=== PATIENT | male | born 1955 | race Two or more races ===

== ENCOUNTER 2016-07-16 20:46 | Emergency (ER) | payer BC ==
[2016-07-16 21:26] VITALS: BP 157/81
--- OUTSIDE RECORDS SUMMARY | 2016-07-16 21:53 | XMS REPORT | Continuity of Care Document ---
:1955 Author Organization [facility] ([facility]) Address [address] [place] [address] Phone [phone] Care Team Providers Name Role Phone Unavailable Primary Care Provider Unavailable Source Comments This disclosure is being made pursuant to the Care Everywhere program, applicable federal and state laws, and may not contain all informaitonavailable regarding this patient.[facility] ([facility]) Active Allergies and Adverse Reactions Not on File Current Medications Not on file Active Problems Not on file Social History Tobacco Use Types Packs/Day Years Used Date Never Assessed Plan of Care Health Maintenance Due Date Last Done Comments HCV Screening 1955 Hepatitis B Vaccine (1 of 3 - Primary Series) 1955 Tdap Vaccine 1964 Lipid Disorder Screening 10/30/1971 Td Vaccine 10/30/1971 Colonoscopy 2003 Prostate Cancer Screening 10/30/2003 Zoster Vaccine 2013 Influenza Vaccine: Seasonal (#1) 10/30/2015 Results from Last 3 Months Not on file
--- OUTSIDE RECORDS SUMMARY | 2016-07-16 21:53 | XMS REPORT | Continuity of Care Document ---
:1955 Author Organization [facility] [place] [address] Care Team Providers Name Role Phone Maynor Freedman Primary Care Provider [phone] Source Comments This disclosure is being made pursuant to the Siftit program and maynot contain all information available regarding this patient.[facility] Active Allergies and Adverse Reactions No Known Allergies Current Medications Be aware that medications may not be up to date as of this document. Alwaysverify current medications with the patient. Prescription Sig. Disp. Refills Start Date End Date Status amLODIPine (NORVASC) 5 MG Take 1 tablet by Active tablet mouth daily. gemfibrozil (LOPID) 600 Take 1 tablet by Active MG tablet mouth 2 (two) times daily. lisinopril-hydrochlorothi Take 1 tablet by Active azide mouth 2 (two) times (PRINZIDE,ZESTORETIC) daily. 20-25 MG per tablet metoprolol succinate Take by mouth. Active (TOPROL XL) 100 MG 24 hr tablet Multiple Take 1 tablet by Active Vitamins-Minerals mouth daily. (MULTIVITAMIN PO) Active Problems Problem Noted Date History of malignant neoplasm of prostate 12/19/2015 Malignant neoplasm of prostate (HCC) 10/02/2010 Overview: Overview: BRENDAN ALDRIDGE MD Overview: [place] 7, T1c BRENDAN ALDRIDGE MD Essential hypertension 10/02/2010 Overview: Overview: BRENDAN ALDRIDGE MD Overview: BRENDAN ALDRIDGE MD Most Recent Encounters Date Type Specialty Providers Description 06/27/2016 Data Import Social History Tobacco Use Types Packs/Day Years Used Date Never Smoker Smokeless Tobacco: Never Used Alcohol Use Drinks/Week oz/Week Comments No Last Filed Vital Signs Vital Sign Reading Time Taken Blood Pressure 152/92 12/19/2015 9:05 AM CDT Pulse 64 04/28/2013 9:38 AM [employer] Temperature 36.3 C (97.4 F) 04/07/2012 8:15 AM [employer] Respiratory Rate 18 04/07/2012 8:15 AM [employer] Height 1.88 m (6' 2") 05/18/2014 9:11 AM [employer] Weight 106.595 kg (235 lb) 12/19/2015 9:05 AM CDT Body Mass Index 30.16 12/19/2015 9:05 AM CDT Oxygen Saturation - - Plan of Care Date Type Specialty Providers Description 12/24/2016 Appointment Urology Kaela, Brendan Sanchez MD [address] [place] [address] [phone] (Fax) Health Maintenance Due Date Last Done Comments Hepatitis C Screening 10/30/1971 Tetanus/Pertussis (1 - Tdap) 1972 Colonoscopy 10/30/2003 Well Adult Visit 10/30/2003 Zoster Vaccine 60+ 2013 Influenza Immunization (#1) 2015 Results from Last 3 Months PSA (06/18/2016 4:29 PM) Component Value Range PSA 0.14 0.00-4.00 ng/mL Narrative Testing performed at [facility], [address] [place] [address].District Captain Osmin Tyson MD
--- NOTE | 2016-07-16 22:25 | ERNOTE ---
ENT HPI Date of Service: 07/16/16 Presenting Symptoms: other - one half of vision in the left eye is blurred Time Seen by Provider: 07/16/16 21:40 Source: patient - Immun/Allergies/Home Medications Immunizations: IMMUNIZATION HX Immunizations Up to Date Yes History of Influenza Vaccine Yes Allergies/Adverse Reactions: Allergies Allergy/AdvReac Type Severity Reaction Status Date / Time No Known Allergies Allergy Unverified 07/16/16 21:26 - History of Present Illness Narrative: 60 year old that noticed while he was driving that the medial part of his visual field was blurred in the left eye. The vision in the right eye was normal. The symptoms started 2-3 hours ago. No complaints of trauma or headache. The blurred part of the visual field moves with eye movement. The blurring is minimized when he puts his glasses on, or when he is looking at close objects. Severity: Present: mild ENT Location: Present: ear (L) Prearrival Treatment: Present: no prearrival treatment Modifying Factors - Improves: Reports: nothing Modifying Factors - Worsens: Reports: nothing Associated Symptoms - ENT: Reports: denies symptoms Review of Systems - Review of Systems Constitutional: Present: no symptoms reported EYE: Present: see HPI ENT: Present: no symptoms reported Respiratory: Present: no symptoms reported Cardiology: Present: no symptoms reported Gastrointestinal/Abdominal: Present: no symptoms reported Genitourinary: Present: no symptoms reported Musculoskeletal: Present: no symptoms reported Skin: Present: no symptoms reported Neurological: Present: no symptoms reported Endocrine: Present: no symptoms reported Hematologic/Lymphatic: Present: no symptoms reported Psych: Present: no symptoms reported - Patient's Past Medical History Patient History - Medical: Kidney stone, Other Patient History - Cardiac/Respiratory: Hypertension, Hyperlipidemia Patient History - Cancer: Prostate Patient History - Surgical Procedures: Colonoscopy Patient History - Other: None - Social History Living Situations: alone Abuse History: No History of abuse Psych History: No pertinent hx Smoking Status: Never smoker Alcohol Use: none Drug Use: none - Immunizations Immunizations Up to Date: Yes History of Influenza Vaccine: Yes Physical Exam - Physical Exam Narrative: Pleasant and cooperative. General Appearance: Present: alert, no apparent distress Eye Exam: Normal inspection: bilateral, PERRL: bilateral, EOMI: bilateral Ears, Nose, Throat: Present: normal ENT inspection Neck: Present: normal inspection Respiratory: Present: no respiratory distress Cardiovascular/Chest: Present: regular rate, rhythm Gastrointestinal/Abdominal: Present: nondistended Back Exam: Present: normal range of motion Extremity Exam: Present: normal inspection Neurological Exam: Present: alert, oriented, normal mood/affect Skin Exam: Present: normal color ED Progress - Vital Signs Patient's Vital Signs:: I have reviewed the patient's vital signs. Vital Signs: Vital Signs 07/16/16 21:19 Temperature 37.1 C Pulse Rate 72 Respiratory 16 Rate Blood Pressure 157/81 O2 Sat by Pulse 97 Oximetry - Progress/Reassessment Chief Complaint: Eye Injury/Trauma Progress:: Unchanged Departure Clinical Impression: Detached retina, left - Departure Disposition: Home self-care Condition: Fair Instructions: Retinal Detachment Print Language: Nauruan Additional Instructions: Follow up with ophthalmology as soon as possible. Referrals: Misbah De La Fuente DO [Primary Care Provider] -
== END 2016-07-16 22:30 | disposition home or self-care (01) ==
LOC: ER 20:46
DX: H33.22 Serous retinal detachment, left eye (principal); Z87.442 Personal history of urinary calculi; Z85.46 Personal history of malignant neoplasm of prostate

== ENCOUNTER 2018-11-27 14:14 | Inpatient (IN) ==
--- NOTE | 2018-11-27 14:41 | ERNOTE ---
Abdominal HPI - General Chief Complaint: Abdominal Pain Time Seen by Provider: 11/27/18 14:16 Source: patient Exam Limitations: no limitations - Immun/Allergies/Home Medications Immunizatons: IMMUNIZATION HX Immunizations Up to Date Yes History of Influenza Vaccine Yes Hx Pneumococcal Vaccination Yes Allergies/Adverse Reactions: Allergies No Known Allergies Allergy (Verified 11/27/18 14:19) Home Medications: HOME MEDICATIONS NK 11/28/18 [Last Taken Unknown] - History of Present Illness Narrative: Patient states that he started to have right flank pain last night while w atching TV. He denies any recent injury, states that the pain is constant, no associated symptoms, no radiation, pain at times is worse with deep breath, no other aggravating symptoms, had three doses of tylenol earlier. 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 Early August of this year he was flown to the [facility] after falling for a brain bleed and spleenic rupture, had splenectomy and davon holes and was at [facility] for rehab for a while. Is now back to living by himself Date (Duration): 11/26/18 Time (Timing): 20:00 Timing: constant Quality: moderate, aching Activities at Onset: rest Modifying Factors - (Improves): Present: rest Modifying Factors - (Worsens): Present: breathing. Absent: coughing, lying down, movement Associated Symptoms: Absent: diarrhea-gross blood, fever/chills, nausea, vomiting, shortness of breath Prior Abdominal Problems: Absent: recent trauma, similar symptoms Prior Treatment: Absent: recently seen, currently on antibiotics Review of Systems - Review of Systems Constitutional: Absent: recent illness, fever ENT: Absent: nose congestion, sore throat Respiratory: Absent: shortness of breath Cardiology: Absent: chest pain Gastrointestinal/Abdominal: Absent: nausea, vomiting, abdominal pain Genitourinary: Present: no symptoms reported. Absent: frequency, dysuria Musculoskeletal: Present: See HPI. 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 History of CT scan of abdomen Onset Date: 09/05/18 Per documentation from [facility]. Massive splenomegaly, and possible small splenic laceration versus splenic lesion. History of CT scan of brain Onset Date: 09/05/[address] scan of chest Onset Date: 09/05/18 History of blood transfusion Onset Date: 09/05/18 3 units pRBCs and 1 unit platelets intraoperatively during splenectomy. Horseshoe tear of retina without detachment, right eye Onset Date: 07/17/16 Hospital admission Onset Date: 09/05/18 Admitted to [facility] on 09/05/2018; trauma after fall. Discharged home on 09/16/2018. Principal diagnosis: laceration of spleen. Ileus, postoperative Onset Date: 09/05/18 Splenic laceration Onset Date: 09/05/18 Grade 2 splenic laceration with fluid in the abdomen. Subdural hematoma Onset Date: 09/05/18 Parafalcine subdural hematoma and left convexity subdural hematoma. Malignant neoplasm prostate Onset Date: 08/24/10 radiation Surgical History: Surgical History (Updated 10/15/18 @ 10:35 by Isabel Garcia RN) History of brain surgery Onset Date: 09/05/18 Dr. Suleiman Dumont, [facility]. Intracranial pressure monitor. History of colonoscopy Onset Date: 06/14/11 Normal. History of gastric surgery Onset Date: ~1992 History of lithotripsy Onset Date: 01/2008 History of nephrolithotomy with removal of calculi Onset Date: ~1987 History of prostate surgery Onset Date: 09/2010 Gold coiled implants to prostate. 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 Highest education level completed: high school graduate Service: No Tobacco: Smoking Status: Never smoker Alcohol: alcohol intake: former Alcohol type: beer Substance Use: substance use type: does not use Dietary Habits: caffeine: Yes Type: carbonated beverages Exercise: Physical activity type: none frequency: does not exercise Edelmira/Adventist: edelmira/moravian: Voodoo Edelmira Physical Exam - Physical Exam General Appearance: Present: wd/wn, alert, no apparent distress Head Exam: Present: normal inspection Eye Exam: Normal inspection: bilateral Respiratory: Present: no respiratory distress, normal breath sounds, no accessory muscle use, chest nontender, lungs clear Cardiovascular/Chest: Present: regular rate, rhythm, no murmur Gastrointestinal/Abdominal: Present: normal bowel sounds, nondistended, soft, tenderness - mild in RUQ with deep palpation Back Exam: Present: normal inspection, normal range of motion, no CVA tenderness, no vertebral tenderness Neurological Exam: Present: alert, oriented, normal mood/affect, no motor/sensory deficits Skin Exam: Present: normal color, warm/dry Progress - Results and Orders Patient's Lab Results:: I have reviewed the patient's lab results. - Vital Signs Patient's Vital Signs:: I have reviewed the patient's vital signs. Vital Signs: Vital Signs 11/27/18 14:15 Temperature 37.3 C Pulse Rate 79 Respiratory Rate 17 Blood Pressure 188/92 H O2 Sat by Pulse Oximetry 96 - EKG EKG #1 EKG: NSR, other - no acute changes EKG read: Interp. by nh - X-Ray X-Ray #1 X-Ray: chest - right pleural effusion with possible infiltrate Interpretation: Reviewed by me - CT/Ultrasound CT/Ultrasound Narrative: venous doppler left leg: Extensive left lower extremity deep venous thrombosis as discussed above. CTA: RLL pneumonia, no PE - Progress/Reassessment Chief Complaint: Abdominal Pain Progress Note-Subjective: 11/27/18 15:31 discussed CXR findings with patient WBC chronically elevated with h/o leukemia patient has no fever, no SOB, normal O2sats, no cough, but pleuritic chest pain PSI 95 points, class IV, CURB 1 point for age discussed possible admission with patient, would prefer to go home, will be started on zithromax and augmentin as class IV PSI, first dose given here 11/27/18 16:00 son is available now, discussed diagnosis and plan with him as well son is concerned about left leg swelling which patient has had for a while, patient states that he mentioned it to his PCP but was told it is nothing to worry about, no testing done so far 11/27/18 16:48 discussed venous doppler with radiologist, extensive DVT right leg 11/27/18 16:53 discussed ultrasound findings with patient, will get CTA to make sure that he doesn't have a PE 11/27/18 17:52 call to [facility] 11/27/18 18:40 call back to [facility], still waiting to hear back from hem/onc 11/27/18 18:[address] Jones (hem/onc) okay to start on eliquis, from her records hematoma has resolved, leukemia is just being monitored at this time 11/27/18 19:04 discussed with plan with patient, he now wants stay mainly due to the pleuritic pain 11/27/18 19:[address] Beebe, okay to admit for pneumonia with pleuritic pain and DVT continue po antibiotics, will stick with tylenol for pain for now as NSAIDs are contraindicated with eliquis and concerns with fall risk and confusion with TBI 11/27/18 20:33 discussed with radiology, over read of CT shows small PEs, discussed with Dr Beebe Departure Clinical Impression: Pleuritic chest pain, H/O traumatic brain injury Pneumonia Qualifiers: Pneumonia type: due to unspecified organism Laterality: right Lung location: lower lobe of lung Qualified Code(s): J18.1 - Lobar pneumonia, unspecified organism DVT (deep venous thrombosis) Qualifiers: DVT location: lower extremity Affected thrombotic vein of extremity: unspecified vein of extremity Chronicity: acute Laterality: left Qualified Code(s): I82.402 - Acute embolism and thrombosis of unspecified deep veins of left lower extremity Pulmonary emboli Qualifiers: Pulmonary embolism type: unspecified Chronicity: unspecified Acute cor pulmonale presence: without acute cor pulmonale Qualified Code(s): I26.99 - Other pulmonary embolism without acute cor pulmonale - Departure Disposition: Still a patient Condition: Stable
[2018-11-27 14:44] LABS: Hemoglobin 11.6 gm/dL (13.5-18.0); Mean Cell Volume 90.5 fl (78-100); Mean Corpuscular Hemoglobin 29.1 pg (27-31); Mean Corpuscular Hgb Conc 32.2 g/dl (32-36); Mean Platelet Volume 9.2 fl (8-11.3); Platelet Count 337 K/mm3 (150-450); Red Blood Count 3.98 M/mm3 (4.7-6.0); Red Cell Distribution Width 19.7 % (11.5-14.0); White Blood Count 33.7 K/mm3 (4.0-10.5)
[2018-11-27 14:47] LABS: Total Cells Counted 100
[2018-11-27 14:50] LABS: Urine Bilirubin Negative (NEGATIVE); Urine Ketone Negative (NEGATIVE); Urine Nitrite Negative (NEGATIVE); Urine Protein Negative (NEGATIVE); Urine Urobilinogen Normal (NORMAL); Urine pH 6.5 pH (5.0-7.0)
[2018-11-27 14:59] LABS: Urine Appearance Clear (CLEAR); Urine Bacteria None Seen; Urine Blood 5 /ul (NEGATIVE); Urine Color Yellow; Urine RBC None Seen /hpf (0-5); Urine WBC None Seen /hpf (0-5)
[2018-11-27 15:00] LABS: BUN/Creatinine Ratio 14.2 (9.0-21.6); Carbon Dioxide 29.5 mmol/L (24-32.6); Potassium 3.8 mmol/L (3.4-4.6)
[2018-11-27 15:01] LABS: Albumin * 3.7 gm/dl (3.4-5.0); Anion Gap 12.3 mmol/L (6.8-13.8); Bilirubin, Total 0.6 mg/dL (0.0-1.1); Ca. Corrected For Albumin 9.5 mg/dL (8.4-10.2); Calcium * 9.6 mg/dL (7.9-10.9); Total Protein 7.5 gm/dL (6.2-8.2); Troponin I 0.017 ng/mL (0.00-0.10)
[2018-11-27 15:05] LABS: Atypical (Reactive) Lymph 81 % (0-2); Eosinophil 1 % (0-3); Lymphocyte 3 % (20-51); Monocyte 2 % (0-9); Neutrophil 13 % (42-75); Neutrophil # 4.4 K/mm3 (1.3-6.0)
[2018-11-27 15:06] LABS: Platelet Estimate Normal (NORMAL); RBC Morphology Normal (NORMAL)
[2018-11-27] MEDS ORDERED: AZITHROMYCIN 250 MG TABLET PO ONE (15:37)
[2018-11-27] MEDS ORDERED: AMOX TR/POTASSIUM CLAVULANATE 875 MG TABLET PO ONE (15:37)
[2018-11-27 17:01] LABS: INR 1.01 INR (0.92-1.08); Partial Thrombolplastin Time 25.5 Seconds (24-32)
[2018-11-27] MEDS ORDERED: ACETAMINOPHEN 325 MG TABLET PO ONE (18:08)
[2018-11-27] MEDS ORDERED: ACETAMINOPHEN 325 MG TABLET PO PRN (19:30)
[2018-11-27] MEDS ORDERED: APIXABAN 5 MG TABLET PO ONE (20:00)
[2018-11-27] MEDS ORDERED: AMOX TR/POTASSIUM CLAVULANATE 875 MG TABLET PO SCH (21:00)
[2018-11-27] MEDS ORDERED: LISINOPRIL 10 MG TABLET PO ONE (21:30)
[2018-11-27] MEDS: HYDROcodone/ACETAMINOPHEN 1 EACH TABLET PO PRN (21:32)
[2018-11-28] MEDS: HYDROcodone/ACETAMINOPHEN 1 EACH TABLET PO PRN (03:48)
--- NOTE | 2018-11-28 07:55 | HP ---
Chief Complaint - Chief Complaint Date of Service: 11/28/18 Time of Service: 07:53 Chief Complaint: flank pain History of Present Illness: Patient with PMHx of Hairy Cell leukemia, TBI and splenic laceration in August 2018 presented to the ED after two days of RUQ pain. He was not sure what made it worse, or what made it better. He denied chest pain, shortness of breath, cough, or fever. Denied bowel changes, dysuria, or skin changes. He'd been having some left lower extremity swelling, and US showed a DVT. CT was done, which showed PE on the right. A call was made to his oncologist, who recommended Eliquis. There was some suggestion of pneumonia on imaging studies, but with negative chest complaints and low procalcitonin, it is felt he does not have pneumonia. He seemed a bit confused during the H&P. Nursing reports an episode this morning when he became very upset, getting his sons confused with eachother. Further history was obtained from his son (in person) and daughter (via phone). He had spent some time at the [facility] for a brain bleed and splenectomy, but was back at home, seeming like he'd returned to baseline. He had fallen about a week ago, and his right lower ribs hit the arm of a chair, but he hadn't been complaining of pain for a couple of days. Family is very concerned about the source of his pain, and his current encephalopathy. He was started on norco, which wasn't helpful, and oxycodone, which also wasn't helpful. Medical History (Updated 11/28/18 @ 08:31 by Anita Mathew MD) Irradiated blood products needed (Chronic) Onset Date: 09/05/18 Detached retina, left (Resolved) Onset Date: 07/17/16 Hairy cell leukemia Onset Date: 09/05/18 Hyperlipidemia Onset Date: 01/2008 Hypertension Onset Date: 12/12/[address] scan Onset Date: 09/05/18 CT cervical spine. History of CT scan of abdomen Onset Date: 09/05/18 Per documentation from [facility]. Massive splenomegaly, and possible small splenic laceration versus splenic lesion. History of CT scan of brain Onset Date: 09/05/[address] scan of chest Onset Date: 09/05/18 History of blood transfusion Onset Date: 09/05/18 3 units pRBCs and 1 unit platelets intraoperatively during splenectomy. Horseshoe tear of retina without detachment, right eye Onset Date: 07/17/16 Hospital admission Onset Date: 09/05/18 Admitted to [facility] on 09/05/2018; trauma after fall. Discharged home on 09/16/2018. Principal diagnosis: laceration of spleen. Ileus, postoperative Onset Date: 09/05/18 Splenic laceration Onset Date: 09/05/18 Grade 2 splenic laceration with fluid in the abdomen. Subdural hematoma Onset Date: 09/05/18 Parafalcine subdural hematoma and left convexity subdural hematoma. Malignant neoplasm prostate Onset Date: 08/24/10 radiation Surgical History: Surgical History (Updated 11/28/18 @ 07:55 by Yajaira Beebe DO) History of brain surgery Onset Date: 09/05/18 Dr. Suleiman Dumont, [facility]. Intracranial pressure monitor. History of colonoscopy Onset Date: 06/14/11 Normal. History of gastric surgery Onset Date: ~1992 History of lithotripsy Onset Date: 01/2008 History of nephrolithotomy with removal of calculi Onset Date: ~1987 History of prostate surgery Onset Date: 09/2010 Gold coiled implants to prostate. 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 Highest education level completed: high school graduate Service: No Tobacco: Smoking Status: Never smoker Alcohol: alcohol intake: former Alcohol type: beer Substance Use: substance use type: does not use Dietary Habits: caffeine: Yes Type: carbonated beverages Exercise: Physical activity type: none frequency: does not exercise [place]/Jew: edelmira/temple: Sikhism [place] Review Of Systems (GEN) - Review of Systems Generalized/Overall Review: Absent: Fever Respiratory: Absent: Cough, Shortness of Breath Cardiac: Absent: Chest Pain, Edema Abdominal: Present: Abdominal Pain - RUQ Genitourinary: Absent: Dysuria Skin: Absent: Rash Immunizations: IMMUNIZATION HX Immunizations Up to Date Yes History of Influenza Vaccine Yes Hx Pneumococcal Vaccination Yes Allergies/Adverse Reactions: Allergies Allergy/AdvReac Type Severity Reaction Status Date / Time No Known Allergies Allergy Verified 11/27/18 14:19 Home Medications: HOME MEDICATIONS NK 11/28/18 [Last Taken Unknown] Exam - Exam Vital Signs: Vital Signs - Last Taken Temp 36.6 C 11/28/18 06:00 Pulse 81 11/28/18 06:00 Resp 18 11/28/18 06:00 BP 169/86 H 11/28/18 06:00 Pulse Ox 93 11/28/18 06:00 Constitutional: Present: Alert, Oriented x3, No distress, Looks Younger than stated age ENT Exam: Present: moist mucous membranes Respiratory: Present: normal breath sounds, no respiratory distress Cardiovascular/Chest: Present: regular rate, rhythm Abdomen: Present: soft, tender - RUQ Extremity: Present: no calf tenderness, other - no obvious size difference in left and right calves Eye contact: Present: good eye contact Thoughts: Present: other - unable to answer some questions, and gives some odd answers Diagnostic Studies: Abnormal Lab Results 11/27/18 11/27/18 11/27/18 Range/Units 14:30 14:30 14:45 WBC 33.7 H (4.0-10.5) K/mm3 RBC 3.98 L (4.7-6.0) M/mm3 Hgb 11.6 L (13.5-18.0) gm/dL Hct 36.0 L (42.0-52.0) % RDW 19.7 H (11.5-14.0) % Neutrophils % (Manual) 13 L (42-75) % Lymphocytes % (Manual) 3 L (20-51) % Lymphocytes # (Manual) 1.0 L (1.5-3.5) k/mm3 Atypic/Reactive Lymphs 81 H (0-2) % D-Dimer (0.19-0.49) ug/mL Random Glucose 121 H (70-110) mg/dL Urine Blood 5 H (NEGATIVE) /ul 11/27/18 Range/Units 15:30 WBC (4.0-10.5) K/mm3 RBC (4.7-6.0) M/mm3 Hgb (13.5-18.0) gm/dL Hct (42.0-52.0) % RDW (11.5-14.0) % Neutrophils % (Manual) (42-75) % Lymphocytes % (Manual) (20-51) % Lymphocytes # (Manual) (1.5-3.5) k/mm3 Atypic/Reactive Lymphs (0-2) % D-Dimer 4.12 H (0.19-0.49) ug/mL Random Glucose (70-110) mg/dL Urine Blood (NEGATIVE) /ul Laboratory Results WBC 33.7 K/mm3 (4.0-10.5) H 11/27/18 14:30 RBC 3.98 M/mm3 (4.7-6.0) L 11/27/18 14:30 Hgb 11.6 gm/dL (13.5-18.0) L 11/27/18 14:30 Hct 36.0 % (42.0-52.0) L 11/27/18 14:30 MCV 90.5 fl (78-100) 11/27/18 14:30 MCH 29.1 pg (27-31) 11/27/18 14:30 MCHC 32.2 g/dl (32-36) 11/27/18 14:30 RDW 19.7 % (11.5-14.0) H 11/27/18 14:30 Plt Count 337 K/mm3 (150-450) 11/27/18 14:30 MPV 9.2 fl (8-11.3) 11/27/18 14:30 13 % (42-75) L 11/27/18 14:30 3 % (20-51) L 11/27/18 14:30 2 % (0-9) 11/27/18 14:30 1 % (0-3) 11/27/18 14:30 4.4 K/mm3 (1.3-6.0) 11/27/18 14:30 1.0 k/mm3 (1.5-3.5) L 11/27/18 14:30 0.7 k/mm3 (0.0-1.0) 11/27/18 14:30 0.3 k/mm3 (0.0-0.7) 11/27/18 14:30 Atypic/Reactive Lymphs 81 % (0-2) H 11/27/18 14:30 Normal (NORMAL) 11/27/18 14:30 RBC Morphology Normal (NORMAL) 11/27/18 14:30 PT 10.0 Seconds (9.1-10.7) 11/27/18 14:36 INR (Anticoag Therapy) 1.01 INR (0.92-1.08) 11/27/18 14:36 PTT ([place]) 25.5 Seconds (24-32) 11/27/18 14:36 4.12 ug/mL (0.19-0.49) H 11/27/18 15:30 Sodium 139 mmol/L (132-142) 11/27/18 14:30 139 mmol/L (130-142) 11/27/18 14:30 Potassium 3.8 mmol/L (3.4-4.6) 11/27/18 14:30 Chloride 101 mmol/L (97-106) 11/27/18 14:30 Carbon Dioxide 29.5 mmol/L (24-32.6) 11/27/18 14:30 12.3 mmol/L (6.8-13.8) 11/27/18 14:30 BUN 17 mg/dL (6-23) 11/27/18 14:30 1.20 mg/dL (0.4-1.4) 11/27/18 14:30 Est GFR (Non-Af Amer) 65 mL/min (60-130) 11/27/18 14:30 14.2 (9.0-21.6) 11/27/18 14:30 121 mg/dL (70-110) H 11/27/18 14:30 Calcium 9.6 mg/dL (7.9-10.9) 11/27/18 14:30 Calcium Adj for Albumin 9.5 mg/dL (8.4-10.2) 11/27/18 14:30 0.6 mg/dL (0.0-1.1) 11/27/18 14:30 AST 15 U/L (0-48) 11/27/18 14:30 ALT 19 U/L (19-67) 11/27/18 14:30 92 U/L (50-170) 11/27/18 14:30 0.017 ng/mL (0.00-0.10) 11/27/18 14:30 7.5 gm/dL (6.2-8.2) 11/27/18 14:30 3.7 gm/dl (3.4-5.0) 11/27/18 14:30 Amylase 45 U/L (25-115) 11/27/18 14:30 131 U/L (73-393) 11/27/18 14:30 0.15 ng/mL (0.05-0.50) 11/27/18 22:50 Yellow 11/27/18 14:45 Clear (CLEAR) 11/27/18 14:45 6.5 pH (5.0-7.0) 11/27/18 14:45 Ur Specific [place] 1.010 SP.GR. (1.005-1.030) 11/27/18 14:45 Negative mg/dL (NEGATIVE) 11/27/18 14:45 Negative mg/dL (NEGATIVE) 11/27/18 14:45 Negative mg/dL (NEGATIVE) 11/27/18 14:45 5 /ul (NEGATIVE) H 11/27/18 14:45 Negative (NEGATIVE) 11/27/18 14:45 Negative mg/dl (NEGATIVE) 11/27/18 14:45 Normal EU/dl (NORMAL) 11/27/18 14:45 Ur Leukocyte Esterase Negative /ul (NEGATIVE) 11/27/18 14:45 None seen /hpf (0-5) 11/27/18 14:45 None seen /hpf (0-5) 11/27/18 14:45 Ur Epithelial Cells 0-5 /hpf (0-5) 11/27/18 14:45 None seen (NONE) 11/27/18 14:45 No culture indicated 11/27/18 14:45 Assessment/Plan - Assessment/Plan (1) Pulmonary embolism Assessment: Berta started yesterday evening for PE and DVT. He is oxygenating well, and heart rate is mostly in the 80's. Problem: Acute Qualifiers: Pulmonary embolism type: unspecified Chronicity: unspecified Acute cor pulmonale presence: without acute cor pulmonale Qualified Code(s): I26.99 - Other pulmonary embolism without acute cor pulmonale (2) DVT (deep venous thrombosis) Assessment: Eliquis has been started. Problem: Acute Qualifiers: DVT location: lower extremity Affected thrombotic vein of extremity: unspecified vein of extremity Chronicity: acute Laterality: left Qualified Code(s): I82.402 - Acute embolism and thrombosis of unspecified deep veins of left lower extremity (3) Encephalopathy Assessment: Seems to have developed since starting pain meds. Will stop oxycodone, which wasn't helping his pain, and try tramadol. If no improvement tomorrow, will obtain head CT. His daughter reports he worked 3rd shift, and has difficulty sleeping at baseline. Decreased sleep could also contribute to his symptoms. Problem: Acute (4) Intractable pain Assessment: Unclear source, but he did have a fall last week, hitting his lower ribs. He has elevated BP, so he's showing objective signs of pain. PE can cause pain also, which could potentially be a source. Will try tramadol and a lidocaine patch. Problem: Acute (5) H/O traumatic brain injury Problem: Chronic (6) Hairy cell leukemia Assessment: His WBC is chronically high. He has an oncologist in , and his leukemia is reportedly being monitored, and treatment not yet started per his daughter. Recommend close followup after DC. Problem: Chronic
[2018-11-28] MEDS ORDERED: oxyCODONE HCL 5 MG TABLET PO PRN (08:16)
[2018-11-28] MEDS ORDERED: ACETAMINOPHEN 500 MG TABLET PO PRN (08:18)
[2018-11-28] MEDS: APIXABAN 5 MG TABLET PO SCH ×3 (08:33→21:34)
[2018-11-28] MEDS ORDERED: LISINOPRIL 10 MG TABLET PO SCH (09:00)
[2018-11-28] MEDS ORDERED: LISINOPRIL 10 MG TABLET PO ONE (13:55)
[2018-11-28] MEDS ORDERED: traMADol HCL 50 MG TABLET PO PRN (14:57)
[2018-11-28] MEDS ORDERED: AZITHROMYCIN 250 MG TABLET PO SCH (19:32)
[2018-11-28] MEDS ORDERED: LABETALOL HCL 5 MG/ML VIAL IV ONE (21:38)
[2018-11-29] MEDS ORDERED: LISINOPRIL 20 MG TABLET PO SCH (09:00)
[2018-11-29] MEDS: APIXABAN 5 MG TABLET PO SCH (09:49)
--- NOTE | 2018-11-29 10:04 | DS ---
(1) Pulmonary embolism Problem: Acute Qualifiers: Pulmonary embolism type: unspecified Chronicity: unspecified Acute cor pulmonale presence: without acute cor pulmonale Qualified Code(s): I26.99 - Other pulmonary embolism without acute cor pulmonale (2) DVT (deep venous thrombosis) Problem: Acute Qualifiers: DVT location: lower extremity Affected thrombotic vein of extremity: unspecified vein of extremity Chronicity: acute Laterality: left Qualified Code(s): I82.402 - Acute embolism and thrombosis of unspecified deep veins of left lower extremity (3) Encephalopathy Problem: Resolved (4) Intractable pain Problem: Resolved (5) H/O traumatic brain injury Problem: Chronic (6) Hairy cell leukemia Problem: Chronic Date of Discharge:: 11/29/18 Description of Stay: Patient with PMHx of Hairy Cell leukemia, TBI and splenic laceration in August 2018 presented to the ED after two days of RUQ pain. He was not sure what made it worse, or what made it better. He denied chest pain, shortness of breath, cough, or fever. Denied bowel changes, dysuria, or skin changes. He'd been having some left lower extremity swelling, and US showed a DVT. CT was done, which showed PE on the right. A call was made to his oncologist, who roman mmended Eliquis. There was some suggestion of pneumonia on imaging studies, but with negative chest complaints and low procalcitonin, it is felt he does not have pneumonia. He seemed a bit confused during the H&P. Nursing reports an episode on 11/28 when he became very upset, getting his sons confused with each other. Due to his previous head injury and his acute encephalopathy, CT head was done, which showed no new concerns. Further history was obtained from his son (in person) and daughter (via phone). [facility], but was back at home, seeming like he'd returned to baseline. He had fallen about a week ago, and his right lower ribs hit the arm of a chair, but he hadn't been complaining of pain for a couple of days. Family is very concerned about the source of his pain, and his current encephalopathy. He was started on norco, which wasn't helpful, and oxycodone, which also wasn't helpful. Pain meds were held, and his mentation improved. On the day of DC, he reported his pain was better. His BP was uncontrolled with initially 10, then 20 mg mg lisinopril. He was given 20 mg IV labetalol, which helped his BP. Subsequently, he was also more calm after that was administered. Discussed with his daughter Madalyn, who will bring him home this afternoon and stay with him for a couple of days after DC. Procedures Performed: none Results and Findings: Pending Mircobiology Results 11/27/18 20:35 Blood Blood Culture - Preliminary NO GROWTH 24 HOURS 11/27/18 19:40 Blood Blood Culture - Preliminary NO GROWTH 24 HOURS Lab Pending Results 11/27/18 14:30: WBC 33.7 H, RBC 3.98 L, Hgb 11.6 L, Hct 36.0 L, MCV 90.5, MCH 29.1, MCHC 32.2, RDW 19.7 H, Plt Count 337, MPV 9.2, Neutrophils % (Manual) 13 L, Lymphocytes % (Manual) 3 L, Monocytes % (Manual) 2, Eosinophils % (Manual) 1, Neutrophils # (Manual) 4.4, Lymphocytes # (Manual) 1.0 L, Monocytes # (Manual) 0.7, Eosinophils # (Manual) 0.3, Atypic/Reactive Lymphs 81 H, Platelet Estimate Normal, RBC Morphology Normal 11/27/18 14:30: Sodium 139, Plasma Sodium 139, Potassium 3.8, Chloride 101, Carbon Dioxide 29.5, Anion Gap 12.3, BUN 17, Creatinine 1.20, Est GFR (Non-Af Amer) 65, BUN/Creatinine Ratio 14.2, Random Glucose 121 H, Calcium 9.6, Calcium Adj for Albumin 9.5, Total Bilirubin 0.6, AST 15, ALT 19, Alkaline Phosphatase 92, Troponin I 0.017, Total Protein 7.5, Albumin 3.7, Amylase 45, Lipase 131 11/27/18 14:36: PT 10.0, INR (Anticoag Therapy) 1.01, PTT ([place]ie) 25.5 11/27/18 14:45: Urine Color Yellow, Urine Appearance Clear, Urine pH 6.5, Ur Specific [place] 1.010, Urine Protein Negative, Urine Glucose (UA) Negative, Urine Ketones Negative, Urine Blood 5 H, Urine Nitrate Negative, Urine Bilirubin Negative, Urine Urobilinogen Normal, Ur Leukocyte Esterase Negative, Urine RBC None seen, Urine WBC None seen, Ur Epithelial Cells 0-5, Urine Bacteria None seen, Urine Culture Comments No culture indicated 11/27/18 15:30: D-Dimer 4.12 H 11/27/18 22:50: Procalcitonin 0.15 Discharge Location: Home Disposition: Home self-care Condition: Stable Discharge Activity: Activity as tolerated Discharge Diet: General/regular food Referrals: Misbah De La Fuente DO [Primary Care Provider] - One Week Prescriptions (Any new or edited meds): Apixaban [Eliquis] 10 mg PO BID #90 tablet Lisinopril [Zestril] 20 mg PO DAILY #30 tab Complete Home Medications List: Complete Home Medication List: Apixaban [Eliquis] 10 mg PO BID #90 tablet 11/29/18 Lisinopril [Zestril] 20 mg PO DAILY #30 tab 11/29/18
[2018-11-29 15:15] VITALS: BP 142/72
== END 2018-11-29 15:10 | disposition home or self-care (01) | DRG 176 ==
LOC: ER 14:14 → MS 14:14 → OBSVTOIN 19:22 → MS 19:57
PROVIDERS: ADMIT Family Medicine; ATTEND Family Medicine
CPT/HCPCS: 36415; 70450; 71020; 71046; 71275; 74019; 74020; 80053; 81001; 82150; 83690; 84145; 84484; 85025; 85379; 85610; 85730; 87040; 93005; 93971; 99285; G0378; Q9967